=== PATIENT | female | born 1965 | race Caucasian/White ===

== ENCOUNTER 2017-11-11 10:45 | Inpatient (IN) | payer MEDICAID, OTHER ==
[2017-11-11 11:17] LABS: ADD MAN DIFF? NO
[2017-11-11 11:24] LABS: WHITE BLOOD COUNT 10.9 10^3/ul (4.8-10.8)
[2017-11-11 11:24] LABS: BASOPHILS % 0.4 % (0.0-2.0); EOSINOPHILS # 0.3 10^3/ul (0.0-0.5); EOSINOPHILS % 2.3 % (0.0-7.0); HEMOGLOBIN 14.1 g/dl (12.0-16.0); LYMPHOCYTES # 2.9 10^3/ul (0.8-2.9); MEAN CORPUSCULAR HEMOGLOBIN 28.7 pg (29.0-33.0); MEAN CORPUSCULAR VOLUME 89.4 fl (82.0-101.0); MEAN PLATELET VOLUME 9.1 fl (7.4-10.4); MONOCYTE # 0.9 10^3/ul (0.3-0.9); MONOCYTES % 8.1 % (0.0-11.0); NEUTROPHIL # 6.7 10^3/ul (1.6-7.5); NEUTROPHILS % 61.6 % (39.0-77.0); PLATELET COUNT 354 10^3/UL (140-415); RED BLOOD COUNT 4.92 10^6/ul (4.20-5.40); RED CELL DISTRIBUTION WIDTH 12.8 % (11.5-14.5)
[2017-11-11] MEDS: SOD CHLORIDE 0.9% 1,000 ML IV ×2 (11:29→16:22)
[2017-11-11] MEDS: ONDANSETRON 4 MG INJ IV (11:30)
[2017-11-11] MEDS: HYDROmorphONE 1 MG/ML SYG IV (11:30)
[2017-11-11 11:44] LABS: INR 0.84; PROTIME 11.6 Sec (11.9-14.9); PT RATIO 0.9
[2017-11-11 11:45] LABS: PARTIAL THROMBOPLASTIN TIME 31.6 Sec (23.0-35.0)
[2017-11-11 11:46] LABS: ALANINE AMINOTRANSFERASE 25 IU/L (13-69); ALBUMIN 4.4 g/dl (3.3-4.9); ALBUMIN/GLOBULIN RATIO 1.15; ALKALINE PHOSPHATASE 83 IU/L (42-121); ANION GAP 12 (8-16); ASPARTATE AMINO TRANSFERASE 38 IU/L (15-46); BILIRUBIN,INDIRECT 0.2 mg/dl (0-1.1); BILIRUBIN,TOTAL 0.2 mg/dl (0.2-1.3); BLOOD UREA NITROGEN 9 mg/dl (7-20); CALCIUM 10.1 mg/dl (8.4-10.2); CARBON DIOXIDE 28 mmol/L (21-31); CHLORIDE 106 mmol/L (97-110); CREATININE 0.75 mg/dl (0.44-1.00); GLUCOSE 100 mg/dl (70-220); POTASSIUM 3.9 mmol/L (3.5-5.1); SODIUM 142 mmol/L (135-144); TOTAL PROTEIN 8.2 g/dl (6.1-8.1)
[2017-11-11 11:58] LABS: TROPONIN-I < 0.012 ng/ml (0.000-0.120)
[2017-11-11] MEDS ORDERED: ACETAMINOPHEN 325 MG TAB PO (13:00)
[2017-11-11] MEDS ORDERED: ONDANSETRON 4 MG INJ IV ×2 (13:00→14:30)
[2017-11-11] MEDS ORDERED: MAGNESIUM HYDROXIDE 30ML CUP PO (14:30)
[2017-11-11] MEDS ORDERED: ACETAMINOPHEN 650 MG SUPP PR (14:30)
[2017-11-11] MEDS ORDERED: NACL 0.9% 3 ML SYG IV (14:30)
[2017-11-11] MEDS ORDERED: morphine 2 MG INJ IV (14:30)
[2017-11-11] MEDS ORDERED: DOCUSATE SODIUM 100 MG CAP PO (14:30)
[2017-11-11] MEDS ORDERED: HYDROCODONE/APAP (5/325) TAB PO ×2 (14:30)
[2017-11-11] MEDS ORDERED: BISACODYL 10 MG SUPP PR (14:30)
[2017-11-12] MEDS: PANTOPRAZOLE 40 MG INJ IV (05:21)
[2017-11-12 06:13] LABS: ADD MAN DIFF? NO
[2017-11-12 06:23] LABS: WHITE BLOOD COUNT 8.4 10^3/ul (4.8-10.8)
[2017-11-12 06:23] LABS: BASOPHILS % 0.5 % (0.0-2.0); EOSINOPHILS # 0.4 10^3/ul (0.0-0.5); EOSINOPHILS % 5.2 % (0.0-7.0); HEMATOCRIT 39.6 % (37.0-47.0); HEMOGLOBIN 12.6 g/dl (12.0-16.0); LYMPHOCYTES # 3.9 10^3/ul (0.8-2.9); LYMPHOCYTES % 45.9 % (15.0-51.0); MEAN CORPUSCULAR HEMOGLOBIN 29.2 pg (29.0-33.0); MEAN CORPUSCULAR HGB CONC 31.8 g/dl (32.0-37.0); MEAN CORPUSCULAR VOLUME 91.9 fl (82.0-101.0); MEAN PLATELET VOLUME 9.3 fl (7.4-10.4); MONOCYTE # 0.7 10^3/ul (0.3-0.9); MONOCYTES % 7.8 % (0.0-11.0); NEUTROPHIL # 3.4 10^3/ul (1.6-7.5); NEUTROPHILS % 40.1 % (39.0-77.0); PLATELET COUNT 328 10^3/UL (140-415); RED BLOOD COUNT 4.31 10^6/ul (4.20-5.40)
[2017-11-12 06:58] LABS: ALANINE AMINOTRANSFERASE 25 IU/L (13-69); ALBUMIN 3.6 g/dl (3.3-4.9); ALKALINE PHOSPHATASE 66 IU/L (42-121); ANION GAP 10 (8-16); ASPARTATE AMINO TRANSFERASE 29 IU/L (15-46); BILIRUBIN,INDIRECT 0.1 mg/dl (0-1.1); BILIRUBIN,TOTAL 0.1 mg/dl (0.2-1.3); BLOOD UREA NITROGEN 12 mg/dl (7-20); CARBON DIOXIDE 28 mmol/L (21-31); CHLORIDE 109 mmol/L (97-110); CHOL/HDL RATIO 4.5 RATIO; CHOLESTEROL 165 mg/dl (100-200); CREATININE 0.85 mg/dl (0.44-1.00); GLUCOSE 92 mg/dl (70-220); HDL CHOLESTEROL 36 mg/dl (37-92); LDL CHOLESTEROL,CALCULATED 99 mg/dl; MAGNESIUM 1.9 mg/dl (1.7-2.5); PHOSPHORUS 4.7 mg/dl (2.5-4.9); POTASSIUM 4.6 mmol/L (3.5-5.1); SODIUM 142 mmol/L (135-144); TOTAL PROTEIN 6.6 g/dl (6.1-8.1); TRIGLYCERIDES 150 mg/dl (0-149)
[2017-11-12 07:12] LABS: HEMOGLOBIN A1C 5.8 % (0-5.9)
[2017-11-12 07:26] LABS: FREE THYROXINE INDEX (Calc) 3.44 ug/ml (0.65-3.89); T3 UPTAKE 35.5 % (23.5-40.5); T4 (THYROXINE) 9.7 ug/dl (5.5-11.0)
[2017-11-12] MEDS: ACETAMINOPHEN 325 MG TAB PO (09:48)
== END 2017-11-12 15:05 | disposition home or self-care (01) | DRG 149 ==
LOC: E/R 10:45 → TEL 12:49
DX: H81.10 Benign paroxysmal vertigo, unspecified ear (principal); F17.210 Nicotine dependence, cigarettes, uncomplicated; D72.829 Elevated white blood cell count, unspecified; Z82.3 Family history of stroke
CPT/HCPCS: 36415; 70450; 70544; 70549; 71045; 80053; 80061; 83036; 83735; 84100; 84436; 84443; 84479; 84484; 85025; 85610; 85730; 87040; 87086; 92610; 93005; 93306; 96361; 96374; 96375; 97161; 97166; 99285-25

== ENCOUNTER 2018-01-16 18:17 | Emergency (ER) | payer MEDICAID, OTHER ==
[2018-01-16] MEDS: DEXAMETHASONE (1 MG/ML PO SYG) PO (21:58)
== END 2018-01-16 21:50 | disposition home or self-care (01) ==
LOC: FTE 21:50
DX: R05 Cough (principal); Z87.891 Personal history of nicotine dependence
CPT/HCPCS: 71046; 99283-25